=== PATIENT | female | born 1985 | race Caucasian/White ===

== ENCOUNTER 2019-06-13 21:18 | Emergency (ER) | payer OTHER ==
[~2019-06-13] VITALS: Ht 165.1 cm; Wt 74.8 kg
[2019-06-13 21:49] VITALS: BP_SYST 173
--- NOTE | 2019-06-13 21:51 | NUR ---
Placed in room 03 . Placed on monitor car operator, blood pressure machine and pulse oximeter. To gown for exam. Side rails up. Report given to Zurdo SIERRA.
--- NOTE | 2019-06-13 21:53 | NUR ---
Pt AAOx4 ambulated into ED c/o 7/10 L sided chest pain and hypertension x 2 hours prior to arrival. Pt has hx of htn and took clonidine and lopressor prior to arrival. BP 173/101. No other injuries/complaints per pt/noted. Will continue to monitor.
--- NOTE | 2019-06-13 22:00 | NUR ---
ER Dr. Donato at bedside examining patient.
[2019-06-13] MEDS ORDERED: ASPIRIN 81 MG TAB.CHEW PO ONE (22:15)
[2019-06-13] MEDS ORDERED: NITROGLYCERIN LINGUAL 400 mCg/SPRAY SL ONE (22:15)
--- NOTE | 2019-06-13 22:19 | NUR ---
ASA 162 PO administered. First dose of 0.4 NTG SL spray administered. Pt tolerated well. 7/10 L side chest pain at this time.
--- NOTE | 2019-06-13 22:23 | NUR ---
Reports 08/21 CP. 2nd dose NTG 0.4 SL spray administered. Pt tolerated well. Radiology at bedside for CXR
[2019-06-13] MEDS ORDERED: NITROGLYCERIN LINGUAL 400 mCg/SPRAY ONE (22:28)
--- NOTE | 2019-06-13 22:29 | NUR ---
Reports 5/10 L side chest pain. 3rd dose NtG 0.4 SL spray administered. Pt tolerated well.
--- NOTE | 2019-06-13 22:37 | NUR ---
Reports 06/[address] Donato notified.
[2019-06-13 22:39] LABS: BILIRUBIN,URINE NEGATIVE (NEGATIVE); BLOOD, URINE NEGATIVE (NEGATIVE); CLARITY/URINE CLEAR (CLEAR); COLOR,URINE YELLOW (YELLOW); GLUCOSE,URINE NEGATIVE (NEGATIVE); KETONES,URINE NEGATIVE (NEGATIVE); LEUKOCYTE ESTERASE ,URINE NEGATIVE (NEGATIVE); NITRITE, URINE NEGATIVE (NEGATIVE); PH,URINE 6.5 (5.0-8.0); PROTEIN URINE NEGATIVE (NEGATIVE); UROBILINOGEN,URINE 0.2 (0.2-1.0)
[2019-06-13 22:48] LABS: BASOPHILS # (AUTO) 0.1 K/uL (0.0-0.2); EOSINOPHILS # (AUTO) 0.1 K/uL (0.0-0.4); EOSINOPHILS % (AUTO) 0.6 % (0.0-4.0); HEMATOCRIT 41.5 % (36-48); HEMOGLOBIN 13.6 g/dL (12.0-16.0); LYMPHOCYTES # (AUTO) 2.6 K/uL (1.0-5.5); LYMPHOCYTES % (AUTO) 22.7 % (20.5-51.5); MEAN CORPUSCULAR HEMOGLOBIN 29 pg (27-31); MEAN CORPUSCULAR HGB CONC 33 % (32-36); MEAN CORPUSCULAR VOLUME 89 fL (79.0-98.0); MONOCYTES # (AUTO) 0.9 K/uL (0.0-1.0); MONOCYTES % (AUTO) 7.7 % (1.7-9.3); NEUTROPHILS # (AUTO) 7.6 K/uL (1.8-7.7); PLATELET COUNT (AUTO) 349 K/uL (130-430); RED BLOOD CELL COUNT(AUTO) 4.67 MIL/uL (4.2-6.2); RED CELL DISTRIBUTION WIDTH 15.2 % (9.0-15.0); WHITE BLOOD COUNT (AUTO) 11.2 K/uL (4.8-10.8)
[2019-06-13 22:55] LABS: CALCIUM 8.6 mg/dL (8.4-11.0); CREATININE 1.19 mg/dL (0.55-1.30); POTASSIUM 3.8 mmol/L (3.5-5.1)
[2019-06-13 22:57] LABS: PROTHROMBIN TIME 9.9 SECS (9.5-12.5)
[2019-06-13 23:01] LABS: TOTAL BILIRUBIN 0.2 mg/dL (0.0-1.0)
[2019-06-13] MEDS ORDERED: KETOROLAC TROMETHAMINE 30 MG VIAL IVP ONE (23:15)
--- NOTE | 2019-06-13 23:42 | NUR ---
Dr. Donato at bedside reassessing patient
[2019-06-14] MEDS ORDERED: hydrALAZINE HCL 20 MG/ML VIAL IVP ONE
--- NOTE | 2019-06-14 00:35 | NUR ---
Patient given written and verbal discharge instructions and verbalizes understanding. ER MD Donato discussed with patient the results and treatment provided. Patient in stable condition. ID arm band removed. IV catheter removed intact and dressing applied, no active bleeding. Rx of Ibuprofen given. Patient educated on pain management and to follow up with PMD. Pain Scale 0. Opportunity for questions provided and answered. Medication side effect fact sheet provided.
--- NOTE | 2019-06-14 00:36 | NUR ---
[id number]. Transportation ETA 15min
[2019-06-14 00:38] VITALS: BP_SYST 137
== END 2019-06-14 00:36 | disposition home or self-care (01) ==
LOC: SED 21:18
DX: M94.0 Chondrocostal junction syndrome [Tietze] (principal); I10 Essential (primary) hypertension; F17.210 Nicotine dependence, cigarettes, uncomplicated; Z71.6 Tobacco abuse counseling
CPT/HCPCS: 36415; 71045; 80053; 81003; 83880; 84484; 85025; 85610; 85730; 93005; 96374; 96375; 99285; J0360; J1885

== ENCOUNTER 2019-12-13 15:06 | Emergency (ER) | payer MEDICAID, OTHER ==
[~2019-12-13] VITALS: Ht 165.1 cm; Wt 74.8 kg
[2019-12-13 15:11] VITALS: BP_SYST 161
[2019-12-13] MEDS ORDERED: NACL 0.9% 1,000 ML IV ONE (15:15)
[2019-12-13] MEDS ORDERED: KETOROLAC TROMETHAMINE 30 MG VIAL IVP ONE (15:15)
[2019-12-13] MEDS ORDERED: ONDANSETRON HCL 4 MG/2 ML VIAL IVP ONE (15:15)
[2019-12-13 15:23] LABS: BASOPHILS # (AUTO) 0.1 K/uL (0.0-0.2); BASOPHILS % (AUTO) 1.1 % (0.0-2.0); EOSINOPHILS % (AUTO) 0.1 % (0.0-4.0); HEMATOCRIT 39.1 % (36-48); HEMOGLOBIN 13.1 g/dL (12.0-16.0); LYMPHOCYTES # (AUTO) 1.6 K/uL (1.0-5.5); LYMPHOCYTES % (AUTO) 14.4 % (20.5-51.5); MEAN CORPUSCULAR HEMOGLOBIN 29 pg (27-31); MEAN CORPUSCULAR HGB CONC 34 % (32-36); MEAN CORPUSCULAR VOLUME 86 fL (79.0-98.0); MONOCYTES # (AUTO) 0.7 K/uL (0.0-1.0); MONOCYTES % (AUTO) 6.5 % (1.7-9.3); NEUTROPHILS # (AUTO) 8.6 K/uL (1.8-7.7); NEUTROPHILS % (AUTO) 77.9 % (40.0-70.0); PLATELET COUNT (AUTO) 322 K/uL (130-430); RED BLOOD CELL COUNT(AUTO) 4.52 MIL/uL (4.2-6.2); RED CELL DISTRIBUTION WIDTH 15.2 % (9.0-15.0)
[2019-12-13] MEDS: MAG-AL HYDROX/SIMETH 30 ML UDC PO ONE ×2 (15:26→16:36)
[2019-12-13 16:10] LABS: SODIUM SERUM 142 mmol/L (136-145)
[2019-12-13 16:13] LABS: ANION GAP 9 (5-15); CHLORIDE 105 mmol/L (98-107); GLUCOSE 119 mg/dL (70-99); POTASSIUM 2.8 mmol/L (3.5-5.1)
[2019-12-13 16:14] LABS: ALANINE AMINOTRANSFERASE 20 U/L (12-78); ALBUMIN 3.6 g/dL (3.4-4.8); ASPARTATE AMINOTRANSFERASE 16 U/L (10-37); CALCIUM 8.6 mg/dL (8.4-11.0); CREATININE 0.85 mg/dL (0.55-1.30); GFR AFRICAN AMERICAN 99 mL/min (>90); TOTAL BILIRUBIN 0.5 mg/dL (0.0-1.0); UREA NITROGEN, BLOOD 15 mg/dL (8-21)
[2019-12-13 16:30] VITALS: BP_SYST 164
[2019-12-13] MEDS ORDERED: POTASSIUM CHLORIDE 20 MEQ TAB.PRT.SR PO ONE (16:30)
[2019-12-13 17:14] LABS: FREE T4 (FREE THYROXINE) 1.1 ng/dL (0.6-1.6); LIPASE 202 U/L (73-393); THYROID STIMULATING HORMONE 0.44 uIu/mL (0.34-4.82)
== END 2019-12-13 16:35 | disposition left against medical advice (07) ==
LOC: SED 15:06
DX: R07.89 Other chest pain (principal); R00.0 Tachycardia, unspecified; F19.20 Other psychoactive substance dependence, uncomplicated; F15.10 Other stimulant abuse, uncomplicated
CPT/HCPCS: 36415; 71045; 80053; 81002; 81025; 83690; 84439; 84443; 84484; 85025; 93005; 96361; 96374; 96375; 99285; J1885; J2405; J7030